=== PATIENT | male | born 1980 | race Caucasian/White ===

== ENCOUNTER 2019-06-24 21:59 | Emergency (ER) | payer BC ==
[~2019-06-24] VITALS: Ht 185.4 cm; Wt 156.0 kg
--- NOTE | 2019-06-24 22:18 | PHYS DOC ---
Adult General Chief Complaint Chief Complaint: FOOT INJURY PAIN HPI HPI 37-year-old male presents with right foot and ankle pain. The patient was stepping off of a large step at home when he rolled his ankle. His foot inverted and he heard a pop. The patient was able to stand and walk at that time. Since then, it has swollen and patient is now unable to bear weight due to pain. He denies any other injuries or complaints. Denies fever or chills. Review of Systems Review of Systems Constitutional: Denies fever or chills [] Eyes: Denies change in visual acuity, redness, or eye pain [] HENT: Denies nasal congestion or sore throat [] Respiratory: Denies cough or shortness of breath [] Cardiovascular: No additional information not addressed in HPI [] GI: Denies abdominal pain, nausea, vomiting, bloody stools or diarrhea [] : Denies dysuria or hematuria [] Musculoskeletal: Right foot and ankle pain[] Integument: Denies rash or skin lesions [] Neurologic: Denies headache, focal weakness or sensory changes [] Endocrine: Denies polyuria or polydipsia [] All other systems were reviewed and found to be within normal limits, except as documented in this note. Physical Exam Physical Exam Constitutional: Well developed, well nourished, no acute distress, non-toxic appearance. [] HENT: Normocephalic, atraumatic, bilateral external ears normal, oropharynx moist, no oral exudates, nose normal. [] Eyes: PERRLA, EOMI, conjunctiva normal, no discharge. [] Neck: Normal range of motion, no tenderness, supple, no stridor. [] Cardiovascular:Heart rate regular rhythm, no murmur [] Lungs & Thorax: Bilateral breath sounds clear to auscultation [] Abdomen: Bowel sounds normal, soft, no tenderness, no masses, no pulsatile masses. [] Skin: Warm, dry, no erythema, no rash. [] Back: No tenderness, no CVA tenderness. [] Extremities: Right lateral foot pain, lateral malleolus tenderness, no midfoot tenderness, mild swelling, no ecchymosis or obvious deformity[] Neurologic: Alert and oriented X 3, normal motor function, normal sensory function, no focal deficits noted. [] Psychologic: Affect normal, judgement normal, mood normal. [] EKG EKG [] Radiology/Procedures Radiology/Procedures [] Impressions: Exam: Right ankle 3 views. Right foot 3 views INDICATION: Fall, pain TECHNIQUE: Frontal, lateral and oblique views of the right foot and right ankle. Comparisons: None FINDINGS: Foot: Bone mineralization is normal. No acute or healed fractures. Soft tissues are unremarkable. Joint spaces are well-maintained. Ankle: Bone mineralization is normal. No acute or healed fractures. Soft tissues are unremarkable. Joint spaces are well-maintained. IMPRESSION: 1. No acute osseous abnormality of the right foot. 2. No acute osseous abnormality of the right ankle. Electronically signed by: Gina Reynolds MD (06/24/2019 11:02 PM) [facility] DICTATED AND SIGNED BY: GINA REYNOLDS MD DATE: 06/24/192301 CC: LAURO CONN DO; ANANDA HENDRICKSON DO ~ Course & Med Decision Making Course & Med Decision Making Pertinent Labs and Imaging studies reviewed. (See chart for details) The patient's x-rays are negative for fracture. I have given him a Oldhams 5/325 in the ED for pain. He likely has a foot sprain. I will discharge him with a short course of Oldhams 5/325. He is stable for discharge at this time. [] Dragon Disclaimer Dragon Disclaimer This electronic medical record was generated, in whole or in part, using a voice recognition dictation system. Departure Departure: Impression: Primary Impression: Right foot sprain Disposition: 01 HOME, SELF-CARE Condition: STABLE Referrals: ANANDA HENDRICKSON DO (PCP) Patient Instructions: Foot Sprain Scripts Hydrocodone Bit/Acetaminophen (NORCO 5-325 TABLET) 1 Each Tablet 1 TAB PO PRN Q6HRS PRN for PAIN, #10 TAB 0 Refills Prov: LAURO CONN DO 06/24/19 Problem Qualifiers Primary Impression: Right foot sprain Encounter type: initial encounter Qualified Codes: S93.601A - Unspecified sprain of right foot, initial encounter LAURO CONN DO Jun 24, 2019 22:18
[2019-06-24] MEDS ORDERED: HYDROcodone/APAP 5/325MG 1 TAB TABLET PO ONE (23:00)
--- NOTE | 2019-06-24 23:05 | RAD ---
Exam: Right ankle 3 views. Right foot 3 views INDICATION: Fall, pain TECHNIQUE: Frontal, lateral and oblique views of the right foot and right ankle. Comparisons: None FINDINGS: Foot: Bone mineralization is normal. No acute or healed fractures. Soft tissues are unremarkable. Joint spaces are well-maintained. Ankle: Bone mineralization is normal. No acute or healed fractures. Soft tissues are unremarkable. Joint spaces are well-maintained. IMPRESSION: 1. No acute osseous abnormality of the right foot. 2. No acute osseous abnormality of the right ankle. Electronically signed by: Adarsh Connelly MD (06/24/2019 11:02 PM) [facility]
[2019-06-24] MEDS ORDERED: HYDR-3165 PO (23:33)
[2019-06-25 00:06] VITALS: BP 170/106
== END 2019-06-25 00:05 | disposition home or self-care (01) ==
LOC: EDBD 21:59 → ER 21:59
DX: S93.601A Unspecified sprain of right foot, initial encounter (principal); X50.9XXA Other and unspecified overexertion or strenuous movements or postures, initial encounter; Y93.89 Activity, other specified; Y92.89 Other specified places as the place of occurrence of the external cause; Y99.8 Other external cause status
CPT/HCPCS: 73610; 73630; 99284

== ENCOUNTER 2020-03-26 20:06 | Emergency (ER) | payer BC ==
[~2020-03-26] VITALS: Ht 185.4 cm; Wt 156.0 kg
[2020-03-26 20:06] VITALS: BP 170/106
[~2020-03-26 20:06] MED LIST: HYDR-3165 PO
[2020-03-26] MEDS ORDERED: IV NORMAL SALINE 1,000ML 1,000 ML IV ONE (20:30)
[2020-03-26] MEDS ORDERED: KETOROLAC 15 MG/ML VIAL. IVP ONE (20:30)
[2020-03-26] MEDS ORDERED: METOCLOPRAMIDE HCL 10 MG/2 ML VIAL. IVP ONE (20:30)
[2020-03-26 21:10] LABS: BASO # 0.1 x10^3/uL (0.0-0.2); BASO % 1 % (0-3); EOS # 0.1 x10^3/uL (0.0-0.7); EOS % 1 % (0-3); HEMATOCRIT 42.7 % (39.0-53.0); HEMOGLOBIN 14.6 g/dL (13.0-17.5); LYMPH # 2.8 x10^3/uL (1.0-4.8); LYMPH % 35 % (24-48); MEAN CORPUSCULAR HEMOGLOBIN 29 pg (25-35); MEAN CORPUSCULAR HGB CONC 34 g/dL (31-37); MEAN CORPUSCULAR VOLUME 86 fL (79-100); MONO # 0.5 x10^3/uL (0.0-1.1); MONO % 6 % (0-9); NEUT # 4.5 x10^3uL (1.8-7.7); NEUT % 57 % (31-73); PLATELET COUNT 247 x10^3/uL (140-400); RED BLOOD COUNT 4.95 x10^6/uL (4.30-5.70); RED CELL DISTRIBUTION WIDTH 14.3 % (11.5-14.5); WHITE BLOOD COUNT 7.9 x10^3/uL (4.0-11.0)
[2020-03-26 21:17] LABS: BILIRUBIN,URINE NEG (NEG); CLARITY,URINE CLOUDY; COLOR,URINE YELLOW; GLUCOSE,URINE NEG (NEG)
--- NOTE | 2020-03-26 21:17 | RAD ---
CT Abdomen and Pelvis without contrast History: Left groin pain and flank pain Technique: Noncontrast CT imaging was performed of the abdomen and pelvis. Multiplanar images are reviewed. Exposure: One or more of the following individualized dose reduction techniques were utilized for this examination: 1. Automated exposure control 2. Adjustment of the mA and/or kV according to patient size 3. Use of iterative reconstruction technique. Comparison: None Findings: There is a 6 to 7 mm calculus at the left ureterovesical junction, mild distal left hydroureter, no significant left hydronephrosis. No left renal calculus is identified. There is 3 mm inferior right renal calculus and 3 mm mid right renal calculus, no right hydronephrosis or ureteral calculus. Accurate evaluation of abdominal visceral organs is limited without intravenous contrast. There is no obvious abnormality of the spleen, liver, or pancreas. There is no adrenal nodularity. Accurate evaluation of bowel is limited without oral contrast. There is no significant free air, free fluid, bowel dilatation. There is facet degenerative change greater inferiorly of the lumbar spine. There is mild dextroscoliosis of the lumbar spine. Impression: 1. There is a 6-7 mm calculus at the left ureterovesical junction with mild distal left hydroureter. There are couple of small right renal calculi, no right hydronephrosis. Electronically signed by: Pee Michel MD (03/26/2020 9:14 PM) [facility]
[2020-03-26 21:18] LABS: BACTERIA,URINE 0 /HPF (0-FEW); NITRITE,URINE NEG (NEG); RBC,URINE >40 /HPF (0-2); SQUAMOUS EPITHELIAL CELL,UR OCC /LPF; UROBILINOGEN,URINE 0.2 mg/dL (0.2 mg/dL); WBC,URINE 0 /HPF (0-4); YEAST,URINE PRESENT /HPF
--- NOTE | 2020-03-26 21:20 | PHYS DOC ---
Past History Past Medical History: No Pertinent History Past Surgical History: Appendectomy Smoking: Non-smoker Alcohol Use: None Drug Use: None General Adult EDM: Chief Complaint: GROIN PAIN HPI: HPI: 39-year-old male presents with report of left testicular pain which is been ongoing for the past week. Patient reports intermittent in nature. Reports pain waxes and wanes in intensity. Denies nausea or vomiting. Reports pain with urination. Denies penile discharge. Denies rash. Denies known exposure to STDs. Reports some associated left flank pain. Review of Systems: Review of Systems: Constitutional: Denies fever or chills Eyes: Denies redness or eye pain HENT: Denies nasal congestion or sore throat Respiratory: Denies cough or shortness of breath Cardiovascular: Denies chest pain or palpitations GI: Denies abdominal pain, nausea, or vomiting : Denies hematuria; reports left testicular pain and dysuria Musculoskeletal: Denies joint pain; reports left flank pain Integument: Denies rash or skin lesions Neurologic: Denies headache, focal weakness or sensory changes Complete systems were reviewed and found to be within normal limits, except as documented in this note. Current Medications: Current Meds: Current Medications Medications (Trade) Dose Ordered Sig/[facility] Start Time Stop Time Status Last Admin Dose Admin Ketorolac Tromethamine (Toradol 15mg Vial) 15 mg 1X ONCE 03/26/20 20:30 03/26/20 20:32 DC 03/26/20 21:11 15 MG Metoclopramide HCl (Reglan Vial) 10 mg 1X ONCE 03/26/20 20:30 03/26/20 20:32 DC 03/26/20 21:12 10 MG Sodium Chloride 1,000 ml @ 1,000 mls/hr 1X ONCE 03/26/20 20:30 03/26/20 21:29 03/26/20 21:11 1,000 MLS/HR Allergies: Allergies: Allergies Coded Allergies Type Severity Reaction Last Updated Verified bee pollen Allergy Intermediate Swelling 06/24/19 Yes Physical Exam: PE: Constitutional: Well developed, well nourished, uncomfortable, non-toxic appearance HENT: Normocephalic, atraumatic Eyes: Conjunctiva normal, no discharge Neck: Normal range of motion, supple Lungs & Thorax: No respiratory distress, equal chest rise and fall Abdomen: Soft, no tenderness, no guarding/rebound tenderness/distention Skin: Warm, dry, no erythema, no rash : Left testicular tenderness, cremasteric reflexes intact bilaterally, no penile discharge Back: No tenderness, left CVA tenderness Extremities: No tenderness, ROM intact, no edema Neurologic: Alert and oriented X 3, no focal deficits noted Psychologic: Affect normal, judgment normal Current Patient Data: Labs: Laboratory Tests Test 03/26/20 20:17 03/26/20 20:58 Urine Collection Type Unknown Urine Color Yellow Urine Clarity Cloudy Urine pH 6.0 Urine Specific [place] >=1.030 Urine Protein Neg (NEG-TRACE) Urine Glucose (UA) Neg mg/dL (NEG) Urine Ketones (Stick) Neg mg/dL (NEG) Urine Blood Large (NEG) Urine Nitrite Neg (NEG) Urine Bilirubin Neg (NEG) Urine Urobilinogen Dipstick 0.2 mg/dL (0.2 mg/dL) Urine Leukocyte Esterase Neg (NEG) Urine RBC >40 /HPF (0-2) Urine WBC 0 /HPF (0-4) Urine Squamous Epithelial Cells Occ /LPF Urine Bacteria 0 /HPF (0-FEW) Urine Yeast Present /HPF White Blood Count 7.9 x10^3/uL (4.0-11.0) Red Blood Count 4.95 x10^6/uL (4.30-5.70) Hemoglobin 14.6 g/dL (13.0-17.5) Hematocrit 42.7 % (39.0-53.0) Mean Corpuscular Volume 86 fL (79-100) Mean Corpuscular Hemoglobin 29 pg (25-35) Mean Corpuscular Hemoglobin Concent 34 g/dL (31-37) Red Cell Distribution Width 14.3 % (11.5-14.5) Platelet Count 247 x10^3/uL (140-400) Neutrophils (%) (Auto) 57 % (31-73) Lymphocytes (%) (Auto) 35 % (24-48) Monocytes (%) (Auto) 6 % (0-9) Eosinophils (%) (Auto) 1 % (0-3) Basophils (%) (Auto) 1 % (0-3) Neutrophils # (Auto) 4.5 x10^3uL (1.8-7.7) Lymphocytes # (Auto) 2.8 x10^3/uL (1.0-4.8) Monocytes # (Auto) 0.5 x10^3/uL (0.0-1.1) Eosinophils # (Auto) 0.1 x10^3/uL (0.0-0.7) Basophils # (Auto) 0.1 x10^3/uL (0.0-0.2) EKG: EKG: [] Radiology/Procedures: Radiology/Procedures: PROCEDURE: CT ABDOMEN PELVIS WO CONTRAST CT Abdomen and Pelvis without contrast History: Left groin pain and flank pain Technique: Noncontrast CT imaging was performed of the abdomen and pelvis. Multiplanar images are reviewed. Exposure: One or more of the following individualized dose reduction techniques were utilized for this examination: 1. Automated exposure control 2. Adjustment of the mA and/or kV according to patient size 3. Use of iterative reconstruction technique. Comparison: None Findings: There is a 6 to 7 mm calculus at the left ureterovesical junction, mild distal left hydroureter, no significant left hydronephrosis. No left renal calculus is identified. There is 3 mm inferior right renal calculus and 3 mm mid right renal calculus, no right hydronephrosis or ureteral calculus. Accurate evaluation of abdominal visceral organs is limited without intravenous contrast. There is no obvious abnormality of the spleen, liver, or pancreas. There is no adrenal nodularity. Accurate evaluation of bowel is limited without oral contrast. There is no significant free air, free fluid, bowel dilatation. There is facet degenerative change greater inferiorly of the lumbar spine. There is mild dextroscoliosis of the lumbar spine. Impression: 1. There is a 6-7 mm calculus at the left ureterovesical junction with mild distal left hydroureter. There are couple of small right renal calculi, no right hydronephrosis. Electronically signed by: Pee Michel MD (03/26/2020 9:14 PM) [facility] Course & Med Decision Making: Course & Med Decision Making Pertinent Labs and Imaging studies reviewed. (See chart for details) Patient presents with report of left testicular pain with radiation to left flank and pain with urination. Denies trauma. Denies fever or chills. Denies known exposure to STDs. Labs obtained and posted to chart. BUN/creatinine within normal limits. UA with microscopic hematuria. No signs of infection appreciated. Chlamydia/gonorrhea cultures pending. Patient declined empiric treatment. CT abdomen/pelvis with findings consistent for obstructing distal ureteral calculi with mild hydronephrosis. Pain addressed. Flomax provided. IV fluid hydration given. Patient stable for discharge with outpatient follow-up with PCP/urologist. Discussed findings and plan with patient, who acknowledges understanding and agreement. Chani Disclaimer: Chani Disclaimer: This electronic medical record was generated, in whole or in part, using a voice recognition dictation system. Departure Departure: Impression: Primary Impression: Kidney stone on left side Disposition: HOME/RESIDENCE PRIOR TO ADM Condition: STABLE Referrals: PCPEMIL (PCP) Patient Instructions: Diet for Kidney Stones, Kidney Stones, [id number] Additional Instructions: Use over the counter Tylenol and/or Ibuprofen for pain. Increase fluid hydration. Scripts Tamsulosin Hcl (FLOMAX) 0.4 Mg Cap.er.24h 1 CAP PO DAILY for Kidney stone for 5 Days, #5 CAP Prov: WILLIAM LANGE DO 03/26/20 Ondansetron (ONDANSETRON ODT) 4 Mg Tab.rapdis 1 TAB PO PRN Q6-8HRS PRN for NAUSEA, #16 TAB Prov: WILLIAM LANGE DO 03/26/20 Justification of Admission: Justification of Admission: Justification of Admission Dx: N/A WILLIAM LANGE DO Mar 26, 2020 21:20
[2020-03-26 21:25] LABS: CALCIUM 9.5 mg/dL (8.5-10.1); CREATININE 1.2 mg/dL (0.7-1.3); GFR 66.7; POTASSIUM 4.1 mmol/L (3.5-5.1)
[2020-03-26] MEDS ORDERED: TAMSULOSIN 0.4 MG CAP.ER.24H. PO ONE (21:30)
[2020-03-26 21:32] LABS: ALBUMIN 3.8 g/dL (3.4-5.0); TOTAL BILIRUBIN 0.3 mg/dL (0.2-1.0); TOTAL PROTEIN 7.5 g/dL (6.4-8.2)
[2020-03-26] MEDS ORDERED: ONDA4TAB12 PO (21:37)
[2020-03-26] MEDS ORDERED: TAMS0.4C97 PO (21:41)
== END 2020-03-26 21:41 | disposition home or self-care (01) ==
LOC: ER 20:06
DX: N20.0 Calculus of kidney (principal); N50.812 Left testicular pain; Z90.89 Acquired absence of other organs; Z91.030 Bee allergy status
CPT/HCPCS: 36415; 74176; 80053; 81001; 83690; 83735; 85025; 87491; 87591; 96374; 96375; 99284; J1885; J2765; J7030

== ENCOUNTER 2020-09-23 21:56 | Emergency (ER) | payer SELFPAY ==
[~2020-09-23] VITALS: Ht 185.4 cm; Wt 155.0 kg
[~2020-09-23 21:56] MED LIST changes: +ONDA4TAB12 PO; +TAMS0.4C97 PO
--- NOTE | 2020-09-23 22:06 | PHYS DOC ---
Past History Past Medical History: Hypertension Past Surgical History: Appendectomy Smoking: Non-smoker Alcohol Use: None Drug Use: None General Adult HPI: HPI: "I feel like I caugh the flu.. Achy all over. Chest pain with deep breaths,... all my bones hurt... All my muscles hurt just like the flu... I even had a temperature at home... Been coughing but nothing comes up.. Patient is a 40 year old male who presents with above hx and complaints generalized malaise, myalgia, arthralgia, nonproductive cough, and fever. No history of travel or specific ill contacts. Normally healthy. Does not follow primary care. Did not have any specific contact with Covid but there have been other coworkers who have been sick. No recent travel outside the [place] area. Review of Systems: Review of Systems: Constitutional: History of fever or chills Eyes: Denies change in visual acuity HENT: History of nasal congestion and sore throat Respiratory: History of cough nonproductive Cardiovascular: Denies chest pain or edema GI: Denies abdominal pain, nausea, vomiting, bloody stools or diarrhea : Denies dysuria Musculoskeletal: Complains of myalgia and arthralgia Integument: Denies rash Neurologic: Denies headache, focal weakness or sensory changes Endocrine: Denies polyuria or polydipsia Lymphatic: Denies swollen glands Psychiatric: Denies depression or anxiety Family History: Family History: Noncontributory presentation Current Medications: Current Meds: See nursing for home meds Allergies: Allergies: Allergies Coded Allergies Type Severity Reaction Last Updated Verified bee pollen Allergy Intermediate Swelling 06/24/19 Yes Physical Exam: PE: Constitutional: Moderate acute distress, non-toxic appearance. [] HENT: Normocephalic, atraumatic, bilateral external ears normal, oropharynx moist, injected pharynx, no oral exudates, nose swollen turbinates and clear rhinorrhea Eyes: PERRLA, EOMI, conjunctiva normal, no discharge. [] Neck: Normal range of motion, no tenderness, supple, no stridor. [] Cardiovascular:Heart rate regular rhythm, no murmur [] Lungs & Thorax: Bilateral breath sounds equal apex with few scattered wheezes on auscultation []. Chest wall is tender to palpation Abdomen: Bowel sounds normal, soft, no tenderness, no masses, no pulsatile masses. Obese. Old surgery scar. Skin: Warm, dry, no erythema, no rash. [] Back: Complains of generalized tenderness, no CVA tenderness. [] Extremities: Complains of generalized muscle tenderness, no cyanosis, no clubbing, ROM intact, no edema. No cording appreciated Neurologic: Alert and oriented X 3, normal motor function, normal sensory function, no focal deficits noted. [] Psychologic: Affect anxious, judgement normal, mood normal. [] EKG: EKG: My interpretation EKG shows a sinus rhythm at 73 bpm. No findings of acute STEMI [] Radiology/Procedures: Radiology/Procedures: [][place] [address] IMAGING REPORT Signed PATIENT: CHET VILLAFUERTE ACCOUNT: [id number] : 1980 LOCATION: ER AGE: 40 SEX: M EXAM STATUS: REG ER ORD. PHYSICIAN: LEELEE ANDRADE MD REASON: Cough, fever PROCEDURE: PORTABLE CHEST 1V XR CHEST 1V Clinical History: Reason: Cough, fever / Spl. Instructions: / History: Technique: AP view of the chest was obtained at 09/23/2020 10:27 PM. Comparison: None. Findings: The cardiomediastinal silhouette is normal. The pulmonary vasculature is normal. The lungs and pleural margins are clear. Impression: No evidence of an acute cardiopulmonary process. Electronically signed by: Bernabe Lenz III, MD (09/23/2020 11:18 PM) [facility] DICTATED AND SIGNED BY: BERNABE LENZ III, MD DATE: 09/23/20 [id number] CC: LEELEE ANDRADE MD; PCP,NO ~MTH0 0 Heart Score: HEART Score for Chest Pain: HEART Score for Chest Pain Response (Comments) Value History Slighlty/Non-Suspicious 0 ECG Normal 0 Age < 45 0 Risk Factors 1 or 2 Risk Factors 1 Troponin < Normal Limit 0 Total 1 Risk Factors: Risk Factors: DM, Current or recent (<one month) smoker, HTN, HLP, family h istory of CAD, obesity. Risk Scores: Score 0 - 3: 2.5% MACE over next 6 weeks - Discharge Home Score 4 - 6: 20.3% MACE over next 6 weeks - Admit for Clinical Observation Score 7 - 10: 72.7% MACE over next 6 weeks - Early Invasive Strategies Course & Med Decision Making: Course & Med Decision Making Pertinent Labs and Imaging studies reviewed. (See chart for details) Push fluids and get adequate rest. Tylenol and ibuprofen for discomfort. Wear a mask that covers nose and mouth anytime you are away from home. Recommend self-isolation for the next 10 days. Follow-up Covid testing. . Impression: 1. Viral syndrome 2. Generalized myalgia and arthralgia 3. Hx of COVID Illness Oct? [] Dragon Disclaimer: Dragon Disclaimer: This electronic medical record was generated, in whole or in part, using a voice recognition dictation system. Departure Departure: Referrals: PCP,NO (PCP) Dragon Disclaimer This chart was dictated in whole or in part using Voice Recognition software in a busy, high-work load, and often noisy Emergency Department environment. It may contain unintended and wholly unrecognized errors or omissions. Dragon Disclaimer This chart was dictated in whole or in part using Voice Recognition software in a busy, high-work load, and often noisy Emergency Department environment. It may contain unintended and wholly unrecognized errors or omissions. LEELEE ANDRADE MD Sep 23, 2020 22:06
[2020-09-23] MEDS ORDERED: IV RINGERS SOLUTION,LACTATED 1,000 ML IV SCH (22:15)
[2020-09-23] MEDS ORDERED: KETOROLAC 30 MG/ML VIAL. IVP ONE (22:15)
[2020-09-23] MEDS ORDERED: IV RINGERS SOLUTION,LACTATED 1,000 ML IV ONE (22:15)
[2020-09-23] MEDS ORDERED: ONDANSETRON PF 4 MG/2 ML VIAL. IVP ONE (22:15)
[2020-09-23] MEDS ORDERED: ALBUTEROL SULFATE 8GM INHALER. INH ONE (22:30)
[2020-09-23] MEDS ORDERED: AZITHROMYCIN 250 MG TABLET. PO ONE (22:30)
[2020-09-23 23:09] LABS: BASO # 0.1 x10^3/uL (0.0-0.2); BASO % 2 % (0-3); EOS # 0.1 x10^3/uL (0.0-0.7); EOS % 1 % (0-3); HEMATOCRIT 43.9 % (39.0-53.0); HEMOGLOBIN 14.7 g/dL (13.0-17.5); LYMPH # 2.1 x10^3/uL (1.0-4.8); LYMPH % 38 % (24-48); MEAN CORPUSCULAR HEMOGLOBIN 28 pg (25-35); MEAN CORPUSCULAR HGB CONC 34 g/dL (31-37); MEAN CORPUSCULAR VOLUME 85 fL (79-100); MONO # 0.3 x10^3/uL (0.0-1.1); MONO % 5 % (0-9); NEUT % 54 % (31-73); PLATELET COUNT 220 x10^3/uL (140-400); RED BLOOD COUNT 5.17 x10^6/uL (4.30-5.70); RED CELL DISTRIBUTION WIDTH 14.6 % (11.5-14.5); WHITE BLOOD COUNT 5.6 x10^3/uL (4.0-11.0)
--- NOTE | 2020-09-23 23:20 | RAD ---
XR CHEST 1V Clinical History: Reason: Cough, fever / Spl. Instructions: / History: Technique: AP view of the chest was obtained at 09/23/2020 10:27 PM. Comparison: None. Findings: The cardiomediastinal silhouette is normal. The pulmonary vasculature is normal. The lungs and pleura l margins are clear. Impression: No evidence of an acute cardiopulmonary process. Electronically signed by: Perry Vail III, MD (09/23/2020 11:18 PM) [facility]
[2020-09-23 23:33] LABS: ALBUMIN 3.5 g/dL (3.4-5.0); C REACTIVE PROTEIN 16.7 mg/L (0-3.3); DIRECT BILIRUBIN 0.1 mg/dL (0.0-0.2); MAGNESIUM 2.1 mg/dL (1.8-2.4); TOTAL BILIRUBIN 0.2 mg/dL (0.2-1.0); TOTAL PROTEIN 7.4 g/dL (6.4-8.2)
[2020-09-24 00:09] LABS: INFLUENZA A PATIENT NEGATIVE (NEGATIVE); INFLUENZA B PATIENT NEGATIVE (NEGATIVE)
--- NOTE | 2020-09-24 00:29 | EKG ---
[address] [address] Test Date: 2020-09-23 Test Time: 22:51:32 Pat Name: CHET VILLAFUERTE Department: Room: Gender: M Cobbler Mckay: RACIEL : 1980 Requested By: LEELEE ANDRADE Order Number: [id number] Reading MD: Measurements Intervals [place] Rate: 72 P: 42 WV: 164 QRS: 6 QRSD: 84 T: 61 QT: 368 QTc: 404 Interpretive Statements SINUS RHYTHM NO SPECIFIC ECG ABNORMALITIES RI6.02 No previous ECG available for comparison
[2020-09-24] MEDS ORDERED: KETOROLAC 30 MG/ML VIAL. IVP ONE (01:00)
[2020-09-24 01:09] VITALS: BP 135/70
== END 2020-09-24 01:21 | disposition home or self-care (01) ==
LOC: ER 21:56
DX: U07.1 COVID-19 (principal); B34.9 Viral infection, unspecified; M79.10 Myalgia, unspecified site; M25.50 Pain in unspecified joint; I10 Essential (primary) hypertension; Z91.030 Bee allergy status
CPT/HCPCS: 36415; 71045; 80076; 82150; 82550; 83690; 83735; 83880; 84443; 84484; 85025; 85379; 85610; 85730; 86140; 87070; 87804; 87880; 93005; 96361; 96374; 96376; 99285; G0480; J1885; J7120; U0003